=== PATIENT | male | born 1985 | race Caucasian/White ===

== ENCOUNTER 2019-08-12 13:43 | Observation (INO) | payer OTHER ==
--- NOTE | 2019-08-12 14:52 | ER Document Report ---
ED General - General Chief Complaint: Shortness Of Breath Stated Complaint: COUGH Time Seen by Provider: 08/12/19 14:25 Mode of Arrival: Ambulatory Information source: Patient Notes: 34-year-old healthy male recently discharged from the presents to the emergency department with complaints of fever, shortness of breath, productive cough. Patient gives history of symptoms started August 01 he became tired lightheaded. Reports he had a fever up to 102.2. He reports he started coughin g last week with white clear bubbly sputum. He did go to the [facility] on Monday. They treated him for an ear infection which he is taking antibiotics twice a day for 10 days. Told him he had a viral infection also prescribed him an inhaler Mucinex and cough drops. He reports he had a chest x-ray done and was told it was good. He reports his ear Is feeling a little bit better. He reports he is still short of breath he went for a walk today became extremely exhausted. He reports a little bit of diarrhea this morning but nothing big. Denies vomiting. Reports decreased appetite because when he eats he gets very short of breath. Denies recent trip. 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 Reports he was tested for the COVID as well as and they were both negative. Patient also reports he is a smoker. Has not smoked anything since August 01 due to his shortness of breath. - HPI Onset: Other - August 01 Onset/Duration: Persistent Associated symptoms: Productive cough, Fever, Nausea, Shortness of breath Exacerbated by: Walking Relieved by: Denies Similar symptoms previously: Yes Recently seen / treated by doctor: Yes - Related Data Allergies/Adverse Reactions: No Known Drug Allergies Allergy (Verified 08/12/19 14:14) Home Medications: INHALER, TYLENOL, IBUPROFEN Past Medical History - General Information source: Patient - Social History Smoking Status: Current Every Day Smoker Cigarette use (# per day): Yes Chew tobacco use (# tins/day): No Frequency of alcohol use: None Drug Abuse: None Occupation: Recent discharge from the , unemployed now Lives with: Family Family History: None Patient has suicidal ideation: No Patient has homicidal ideation: No Pulmonary Medical History: Reports: Hx Bronchitis, Hx Pneumonia Past Surgical History: Reports: Hx Orthopedic Surgery - RIGHT KNEE, JAW Review of Systems - Review of Systems Notes: Review HPI for review of systems., All other systems negative Physical Exam - Vital signs Vitals: Temp 98.8 F 08/12/19 14:05 - General General appearance: Alert In distress: None - HEENT Head: Normocephalic, Atraumatic Eyes: Normal Conjunctiva: Normal Extraocular movements intact: Yes Pupils: PERRL Ears: Normal External canal: Normal Tympanic membrane: Injected - Left Nasal: Normal Mucous membranes: Moist Pharynx: Normal Neck: Normal, Supple. No: Lymphadenopathy - Respiratory Respiratory status: No respiratory distress Chest status: Nontender Breath sounds: Decreased air movement, Rhonchi Chest palpation: Normal - Cardiovascular Rhythm: Regular Heart sounds: Normal auscultation Murmur: No - Abdominal Inspection: Normal Distension: No distension Bowel sounds: Normal Tenderness: Nontender Organomegaly: No organomegaly - Back Back: Normal, Nontender - Extremities General upper extremity: Normal color, Normal ROM General lower extremity: Normal color, Normal ROM - Neurological Neuro grossly intact: Yes Cognition: Normal Orientation: AAOx4 [place] Coma Scale Eye Opening: Spontaneous [place] Coma Scale Verbal: Oriented [place] Coma Scale Motor: Obeys Commands [place] Coma Scale Total: 15 Speech: Normal - Psychological Associated symptoms: Normal affect, Normal mood - Skin Skin Temperature: Warm Skin Moisture: Dry Skin Color: Normal Course - Re-evaluation Re-evalutation: 08/12/19 15:06 34-year-old relatively healthy male presents with shortness of breath fever cough. Recently tested for the COVID at [facility] which was negative. Patient presents here with increased shortness of breath reports low oxygen levels. O2 sat 90% on room air. 2 L nasal cannula placed. Labs ordered as well as CT of the chest. 08/12/19 18:00 I ambulated the patient around on room air. Patient O2 sat stayed between 92 to 93%. Patient became extremely short of breath heart rate bumped up to 115. CTA notes groundglass attenuation in both lungs predominantly in the right which is reported as a common feature of COVID-19, pneumonia. I consulted Ana Maria EDMOND, the hospital lead for admissions. She is going to talk to the ICU chest pain coordinator, dr castillo Chest X-Ray 08/12/19 00:00 IMPRESSION: HAZY AIRSPACE DISEASE IN THE LUNG BASES. Chest/Abdomen CTA 08/12/19 14:49 IMPRESSION: 1. Patchy areas of tree-in-bud and ground-glass attenuation in both lungs, predominantly in the right lower lobe. Commonly reported imaging features of COVID-19 pneumonia are present. Other processes such as influenza pneumonia and organizing pneumonia, as can be seen with drug toxicity and connective tissue disease, can cause a similar imaging pattern. 2. No pulmonary embolism. Evaluation is mildly limited due to respiratory motion and bolus timing. 3. Left renal cortical cyst. Laboratory 08/12/19 08/12/19 08/12/19 15:17 15:17 15:17 WBC 10.3 RBC 4.88 Hgb 15.3 Hct 43.1 MCV 88 MCH 31.4 MCHC 35.5 RDW 12.4 Plt Count 370 Lymph % (Auto) 12.4 L [place] % (Auto) 10.9 Eos % (Auto) 3.5 Baso % (Auto) 0.5 Absolute Neuts (auto) 7.5 Absolute Lymphs (auto) 1.3 Absolute Monos (auto) 1.1 Absolute Eos (auto) 0.4 Absolute Basos (auto) 0.0 Seg Neutrophils % 72.7 Sodium Potassium Chloride Carbon Dioxide Anion Gap BUN Creatinine Est GFR ( Amer) Est GFR (MDRD) Non-Af Glucose Calcium Total Bilirubin Direct Bilirubin Neonat Total Bilirubin Neonat Direct Bilirubin Neonat Indirect Bili AST ALT Alkaline Phosphatase Total Protein Albumin Urine Color Urine Appearance Urine pH Ur Specific Gate Urine Protein Urine Glucose (UA) Urine Ketones Urine Blood Urine Nitrite Urine Bilirubin Urine Urobilinogen Ur Leukocyte Esterase Urine WBC (Auto) Urine RBC (Auto) Squamous Epi Cells Auto Urine Mucus (Auto) Urine Ascorbic Acid Influenza A (Rapid) NEGATIVE Influenza B (Rapid) NEGATIVE Group A Strep Rapid NEGATIVE 08/12/19 08/12/19 15:17 15:32 WBC RBC Hgb Hct MCV MCH MCHC RDW Plt Count Lymph % (Auto) [place] % (Auto) Eos % (Auto) Baso % (Auto) Absolute Neuts (auto) Absolute Lymphs (auto) Absolute Monos (auto) Absolute Eos (auto) Absolute Basos (auto) Seg Neutrophils % Sodium 136.9 L Potassium 4.0 Chloride 98 Carbon Dioxide 30 Anion Gap 9 BUN 8 Creatinine 0.88 Est GFR ( Amer) > 60 Est GFR (MDRD) Non-Af > 60 Glucose 95 Calcium 9.7 Total Bilirubin 0.6 Direct Bilirubin 0.2 Neonat Total Bilirubin Not Reportable Neonat Direct Bilirubin Not Reportable Neonat Indirect Bili Not Reportable AST 43 ALT 60 H Alkaline Phosphatase 87 Total Protein 7.5 Albumin 4.3 Urine Color YELLOW Urine Appearance CLEAR Urine pH 6.[address] 1.019 Urine Protein NEGATIVE Urine Glucose (UA) NEGATIVE Urine Ketones TRACE H Urine Blood NEGATIVE Urine Nitrite NEGATIVE Urine Bilirubin NEGATIVE Urine Urobilinogen 4.0 H Ur Leukocyte Esterase NEGATIVE Urine WBC (Auto) 1 Urine RBC (Auto) 5 Squamous Epi Cells Auto <1 Urine Mucus (Auto) RARE Urine Ascorbic Acid 20 H Influenza A (Rapid) Influenza B (Rapid) Group A Strep Rapid 08/12/19 18:40 Dr. Urrutia in patient's room to assess 08/12/19 18:59 Patient to be admitted for hypoxia, cough, present under investigation for possible COVID-19. Dr. Urrutia reports he informed patient he will be admitted. - Vital Signs Vital signs: Temp Pulse Resp BP Pulse Ox 98.8 F 81 24 H 136/81 H 92 08/12/19 14:08 08/12/19 14:08 08/12/19 14:08 08/12/19 14:08 08/12/19 15:24 - Laboratory Result Diagrams: 08/12/19 15:17 08/12/19 15:17 Laboratory results interpreted by me: 08/12/19 08/12/19 08/12/19 15:17 15:17 15:32 Lymph % (Auto) 12.4 L Sodium 136.9 L ALT 60 H Urine Ketones TRACE H Urine Urobilinogen 4.0 H Urine Ascorbic Acid 20 H - Diagnostic Test Radiology reviewed: Image reviewed, Reports reviewed Discharge - Discharge Clinical Impression: Hypoxia, Cough, Person under investigation for COVID-19 Condition: Stable Disposition: ADMITTED INPATIENT Unit Admitted: Medical Floor
--- NOTE | 2019-08-12 15:08 | RADIOLOGY REPORT (SQ) ---
EXAM DESCRIPTION: CHEST SINGLE VIEW IMAGES COMPLETED DATE/TIME: 08/12/2019 2:59 pm REASON FOR STUDY: LOW O2 COMPARISON: None. EXAM PARAMETERS: NUMBER OF VIEWS: One view. TECHNIQUE: Single frontal radiographic view of the chest acquired. RADIATION DOSE: NA LIMITATIONS: None. FINDINGS: LUNGS AND PLEURA: Hazy airspace disease in the lung bases. MEDIASTINUM AND HILAR STRUCTURES: No masses. Contour normal. HEART AND VASCULAR STRUCTURES: Heart normal in size. Normal vasculature. BONES: No acute findings. HARDWARE: None in the chest. OTHER: No other significant finding. IMPRESSION: HAZY AIRSPACE DISEASE IN THE LUNG BASES. TECHNICAL DOCUMENTATION: JOB ID: [id number] 2010 [employer]- All Rights Reserved Reading location - IP/workstation name: [email or web address]
[2019-08-12 15:40] LABS: ABSOLUTE EOSINOPHILS # (AUTO) 0.4 10^3/uL (0.0-0.6); ABSOLUTE LYMPHOCYTES (AUTO) 1.3 10^3/uL (0.5-4.7); ABSOLUTE MONOCYTES (AUTO) 1.1 10^3/uL (0.1-1.4); ABSOLUTE NEUT (AUTO) 7.5 10^3/uL (1.7-8.2); BASOPHILS % (AUTO) 0.5 % (0-2); EOSINOPHILS % (AUTO) 3.5 % (0-6); HEMATOCRIT 43.1 % (37.9-51.0); HEMOGLOBIN 15.3 g/dL (13.5-17.0); LYMPHOCYTES % (AUTO) 12.4 % (13-45); MEAN CORPUSCULAR HEMOGLOBIN 31.4 pg (27.0-33.4); MEAN CORPUSCULAR HGB CONC 35.5 g/dL (32.0-36.0); MEAN CORPUSCULAR VOLUME 88 fl (80-97); MONOCYTES % (AUTO) 10.9 % (3-13); PLATELET COUNT 370 10^3/uL (150-450); RED BLOOD COUNT 4.88 10^6/uL (4.35-5.55); RED CELL DISTRIBUTION WIDTH 12.4 % (11.5-14.0); SEGMENTED NEUTROPHILS % (AUTO) 72.7 % (42-78); TOTAL CELLS COUNTED % (AUTO) 100 %; WHITE BLOOD COUNT 10.3 10^3/uL (4.0-10.5)
[2019-08-12 15:49] LABS: APPEARANCE,URINE CLEAR; BILIRUBIN,URINE NEGATIVE (NEGATIVE); COLOR,URINE YELLOW; GLUCOSE, URINE NEGATIVE (NEGATIVE); KETONES,URINE TRACE mg/dL (NEGATIVE); LEUKOCYTE ESTERASE,URINE NEGATIVE (NEGATIVE); NITRITE,URINE NEGATIVE (NEGATIVE); PROTEIN,URINE NEGATIVE (NEGATIVE); URINE SPECIFIC GRAVITY 1.019
[2019-08-12 15:55] LABS: ALBUMIN 4.3 g/dL (3.5-5.0); ALKALINE PHOSPHATASE 87 U/L (38-126); ANION GAP 9 (5-19); ASPARTATE AMINO TRANSFERASE 43 U/L (17-59); BILIRUBIN,DIRECT 0.2 mg/dL (0.0-0.4); BILIRUBIN,TOTAL 0.6 mg/dL (0.2-1.3); BLOOD UREA NITROGEN 8 mg/dL (7-20); CALCIUM 9.7 mg/dL (8.4-10.2); CARBON DIOXIDE 30 mmol/L (22-30); CHLORIDE 98 mmol/L (98-107); GLUCOSE 95 mg/dL (75-110); TOTAL PROTEIN 7.5 g/dL (6.3-8.2)
[2019-08-12 16:05] LABS: A TYPE INFLUENZA AG NEGATIVE (NEGATIVE); B INFLUENZA AG NEGATIVE (NEGATIVE)
--- NOTE | 2019-08-12 17:38 | RADIOLOGY REPORT (SQ) ---
EXAM DESCRIPTION: CTA CHEST IMAGES COMPLETED DATE/TIME: 08/12/2019 4:05 pm REASON FOR STUDY: COUGH, HYPOXIA . Low O2 saturation. COMPARISON: Chest radiograph same date. TECHNIQUE: CT scan of the chest performed using helical scanning technique with dynamic intravenous contrast injection. Images reviewed with lung, soft tissue and bone windows. Reconstructed coronal and sagittal MPR images reviewed. Additional 3 dimensional post-processing performed to develop Maximal Intensity Projection images (SC P). All images stored on PACS. All CT scanners at this facility use dose modulation, iterative reconstruction, and/or weight based d osing when appropriate to reduce radiation dose to as low as reasonably achievable (ALARA). [facility]: Dose Right [facility]: CareDose [facility]: Dose Right [facility]: Teradose 4D [facility]: [employer] CONTRAST TYPE AND DOSE: contrast/concentration: Isovue 350.00 mg/ml; Total Contrast Delivered: 70.0 ml; Total Saline Delivered: 36.8 ml Contrast bolus optimized for the pulmonary arteries. Not diagnostic for the aorta. RENAL FUNCTION: GFR > 60. RADIATION DOSE: CT Rad equipment meets quality standard of care and radiation dose reduction techniq ues were employed. CTDIvol: 13.2 - 18.9 mGy. DLP: 790 mGy-cm. . LIMITATIONS: None. FINDINGS: LUNGS AND PLEURA: The trachea has normal caliber and appearance. There are patchy areas o f tree-in-bud and nodular consolidation with areas of ground-glass attenuation in both lungs, most pr edominant in the right lower low and lingula. No pleural effusion or pneumothorax. AORTA AND GREAT VESSELS: No aneurysm. Contrast bolus not optimized for the aorta. Arch origin of th e left vertebral artery, a normal variant. HEART: No pericardial effusion. No significant coronary artery calcifications. PULMONARY ARTERIES: No emboli visualized in the main pulmonary arteries or the segmental branches. E valuation is somewhat limited due to bolus timing and respiratory motion. HILAR AND MEDIASTINAL STRUCTURES: No identified masses or abnormal nodes. HARDWARE: None in the chest. UPPER ABDOMEN: Left renal cortical cyst. THYROID AND OTHER SOFT TISSUES: No masses. No adenopathy. BONES: No acute or significant finding. 3D MIPS: Confirm above findings. OTHER: No other significant finding. IMPRESSION: 1. Patchy areas of tree-in-bud and ground-glass attenuation in both lungs, predominantly in the right lower lobe. Commonly reported imaging features of COVID-19 pneumonia are present. Other processes such as influenza pneumonia and organizing pneumonia, as can be seen with drug toxicity and connectiv e tissue disease, can cause a similar imaging pattern. 2. No pulmonary embolism. Evaluation is mildly limited due to respiratory motion and bolus timing. 3. Left renal cortical cyst. COMMENT: Quality ID # [id number]: Final reports with documentation of one or more dose reduction techniques (e.g., Automated exposure control, adjustment of the mA and/or kV according to patient size, use of iterative reconstruction technique) TECHNICAL DOCUMENTATION: JOB ID: [id number] 2010 [employer]- All Rights Reserved Reading location - IP/workstation name: [email or web address]
--- NOTE | 2019-08-12 19:14 | PDOC H&P ---
History of Present Illness History of Present Illness: AVRIL DEAN is a 34 year old male who was recently discharged from the [place] due to medical issues with his lower back who presents with upper respiratory symptoms. He said he has been sick for the past 10 or 11 days. His was initially sick 3 or 4 days ahead of him, she was treated with amoxicillin for an ear infection and she has since convalesced. He was also given some amoxicillin for the same reason, but he says his symptoms have not improved. He has also used an albuterol inhaler along with some Mucinex and some cdkt-lqc-bemohay cough medications but his symptoms have not improved. He said he is been intermittently febrile, at least he feels like he has been febrile. He has had a wet cough that has been productive of some whitish sputum. He used to smoke a pack a day for about 6 years but has not smoked since any of his symptoms began. He said his was tested for the flu and for the coronavirus, both were negative. He said he has also been tested for influenza and coronavirus, both were negative. He said he thinks it was the rapid test because they took the sample 1 day and called him the next day with the result. He denies vaping or smoking any other drugs. He denies any other drug use. [place] He said that everybody on basis pretty much keeping them to themselves. He said the only time he is left the house is been to go to [employer] or the grocery store. He lives with his , his 2 kids, and his zziidx-ry-luh. He said his rumzgu-ns-xti is from [facility] and said that when she was there a couple of months ago there was something going around and she got it but she got over it. She was asymptomatic whenever she came to their house. Neither the yglixn-wu-vww nor the 2 children have been sick since all of this began with the patient and his . In the ER he was hypoxic, a couple of times his pulse oximetry dropped into the mid 80s on room air. He was tachycardic and looked flushed. He had chest x-ray and chest CT findings consistent with a bibasilar pneumonitis. His CBC was unremarkable. He is afebrile here. He has a wet cough and was coughing frequently and he had some crackles on chest exam. Past Medical History Pulmonary Medical History: Reports: Bronchitis, Pneumonia Past Surgical History Past Surgical History: Reports: Orthopedic Surgery - RIGHT KNEE, JAW Social History Lives with: Family Smoking Status: Current Every Day Smoker Electronic Cigarette use?: No Family History Family History: None Parental Family History Reviewed: Yes - Hypertension, hyperlipidemia Children Family History Reviewed: Yes - Both healthy Sibling(s) Family History Reviewed.: Yes - Nothing known Medication/Allergy Allergies/Adverse Reactions: No Known Drug Allergies Allergy (Verified 08/12/19 14:14) Review of Systems All systems: reviewed and no additional remarkable complaints except as stated - All systems were reviewed and were negative except as noted in the HPI Physical Exam Vital Signs: Temp Pulse Resp BP Pulse Ox 98.8 F 81 24 H 136/81 H 92 08/12/19 14:08 08/12/19 14:08 08/12/19 14:08 08/12/19 14:08 08/12/19 15:24 Intake & Output 08/11/19 08/12/19 08/13/19 06:59 06:59 06:59 Weight 104.5 kg General appearance: PRESENT: cooperative, mild distress, well-developed, well-no urished Head exam: PRESENT: atraumatic, normocephalic Eye exam: PRESENT: EOMI, PERRLA. ABSENT: conjunctival injection, nystagmus, scleral icterus Ear exam: PRESENT: normal external ear exam Mouth exam: PRESENT: moist, neck supple Throat exam: ABSENT: post pharyngeal erythema Neck exam: PRESENT: full ROM. ABSENT: carotid bruit, JVD, lymphadenopathy, meningismus, tenderness, thyromegaly Respiratory exam: PRESENT: chest wall tenderness, crackles - Bibasilar, symmetrical, tachypnea, unlabored. ABSENT: accessory muscle use, prolonged expiratory phas, rhonchi, wheezes Cardiovascular exam: PRESENT: +S1, +S2, tachycardia. ABSENT: diastolic murmur, systolic murmur Pulses: PRESENT: normal carotid pulses Vascular exam: PRESENT: normal capillary refill GI/Abdominal exam: PRESENT: normal bowel sounds, soft. ABSENT: distended, guarding, rebound, tenderness Extremities exam: ABSENT: clubbing, pedal edema Musculoskeletal exam: PRESENT: normal inspection. ABSENT: deformity Neurological exam: PRESENT: alert, awake, oriented to person, oriented to place, oriented to time, oriented to situation, CN II-XII grossly intact. ABSENT: motor sensory deficit Psychiatric exam: PRESENT: appropriate affect, normal mood Skin exam: PRESENT: dry, warm, other - Flushed Results Laboratory Results: 08/12/19 15:17 08/12/19 15:17 08/12/19 08/12/19 08/12/19 15:17 15:17 15:32 WBC 10.3 RBC 4.88 Hgb 15.3 Hct 43.1 MCV 88 MCH 31.4 MCHC 35.5 RDW 12.4 Plt Count 370 Seg Neutrophils % 72.7 Sodium 136.9 L Potassium 4.0 Chloride 98 Carbon Dioxide 30 Anion Gap 9 BUN 8 Creatinine 0.88 Est GFR ( Amer) > 60 Glucose 95 Calcium 9.7 Total Bilirubin 0.6 AST 43 Alkaline Phosphatase 87 Total Protein 7.5 Albumin 4.3 Urine Color YELLOW Urine Appearance CLEAR Urine pH 6.0 Ur Specific [place] 1.019 Urine Protein NEGATIVE Urine Glucose (UA) NEGATIVE Urine Ketones TRACE H Urine Blood NEGATIVE Urine Nitrite NEGATIVE Ur Leukocyte Esterase NEGATIVE Urine WBC (Auto) 1 Urine RBC (Auto) 5 Impressions: Chest X-Ray 08/12/19 00:00 IMPRESSION: HAZY AIRSPACE DISEASE IN THE LUNG BASES. Chest/Abdomen CTA 08/12/19 14:49 IMPRESSION: 1. Patchy areas of tree-in-bud and ground-glass attenuation in both lungs, predominantly in the right lower lobe. Commonly reported imaging features of COVID-19 pneumonia are present. Other processes such as influenza pneumonia and organizing pneumonia, as can be seen with drug toxicity and connective tissue disease, can cause a similar imaging pattern. 2. No pulmonary embolism. Evaluation is mildly limited due to respiratory motion and bolus timing. 3. Left renal cortical cyst. Assessment and Plan - Diagnosis (1) Acute hypoxemic respiratory failure Is this a current diagnosis for this admission?: Yes Plan: Will monitor on pulse oximetry and use supplemental O2 as needed to maintain SPO2 greater than 90% (2) Suspected infectious disease Is this a current diagnosis for this admission?: Yes Plan: While testing him for viral infections, will empirically treat with Rocephin and azithromycin for potential community acquired pneumonia (3) Person under investigation for COVID-19 Is this a current diagnosis for this admission?: Yes Plan: Appropriate precautions taken. Initial rapid test was negative, but his presentation is somewhat suspicious and so we are going to send him out for PCR confirmation. (4) Current every day smoker Is this a current diagnosis for this admission?: Yes Plan: Counseled regarding the negative effects of cigarette smoking on his current and long-term health. He has not smoked since he first got sick with this about a week and a half ago, and I strongly recommended that he quit. - Time Time Spent with patient: 35 or more minutes - Inpatient Certification Based on my medical assessment, after consideration of the patient's comorbidities, presenting symptoms, or acuity I expect that the services needed warrant INPATIENT care.: Yes I certify that my determination is in accordance with my understanding of Medicare's requirements for reasonable and necessary INPATIENT services [42 CFR 412.3e].: Yes Medical Necessity: Failure to Improve With Outpatient Therapy, Need Close Monitoring Due to Risk of Patient Decompensation, Need For Continuous Telemetry Monitoring, Need for IV Antibiotics, Risk of Complication if Not Cared For in Hospital
[2019-08-12] MEDS ORDERED: CEFTRIAXONE 1 GM/D5W RTU 1 GM/50 ML RTUPB IV ONE (20:00)
[2019-08-12] MEDS ORDERED: AZITHROMYCIN 500 MG in DEXTROSE 5%-WATER 250 ML IV ONE (20:00)
[2019-08-12] MEDS: IPRATROPIUM/ALBUTEROL 0.5-2.5 MG/3 ML AMPUL NEB PRN (20:19)
[2019-08-12] MEDS ORDERED: AZITHROMYCIN INJ 500 MG VIAL IV ONE (21:06)
[2019-08-13 05:31] LABS: ABSOLUTE EOSINOPHILS # (AUTO) 0.3 10^3/uL (0.0-0.6); ABSOLUTE LYMPHOCYTES (AUTO) 1.4 10^3/uL (0.5-4.7); BASOPHILS % (AUTO) 0.4 % (0-2); EOSINOPHILS % (AUTO) 3.1 % (0-6); HEMATOCRIT 39.1 % (37.9-51.0); HEMOGLOBIN 14.1 g/dL (13.5-17.0); LYMPHOCYTES % (AUTO) 14.2 % (13-45); MEAN CORPUSCULAR HEMOGLOBIN 31.4 pg (27.0-33.4); MEAN CORPUSCULAR HGB CONC 36.1 g/dL (32.0-36.0); MEAN CORPUSCULAR VOLUME 87 fl (80-97); MONOCYTES % (AUTO) 10.4 % (3-13); PLATELET COUNT 331 10^3/uL (150-450); RED BLOOD COUNT 4.49 10^6/uL (4.35-5.55); RED CELL DISTRIBUTION WIDTH 12.3 % (11.5-14.0); SEGMENTED NEUTROPHILS % (AUTO) 71.9 % (42-78); TOTAL CELLS COUNTED % (AUTO) 100 %; WHITE BLOOD COUNT 9.7 10^3/uL (4.0-10.5)
[2019-08-13 05:52] LABS: ANION GAP 11 (5-19); BLOOD UREA NITROGEN 7 mg/dL (7-20); CALCIUM 9.2 mg/dL (8.4-10.2); CARBON DIOXIDE 26 mmol/L (22-30); CHLORIDE 99 mmol/L (98-107); GLUCOSE 101 mg/dL (75-110)
[2019-08-13] MEDS ORDERED: ACETAMINOPHEN 325 MG TABLET PO PRN (12:08)
[2019-08-13] MEDS ORDERED: ACETAMINOPHEN 325 MG TABLET ONE (12:17)
[2019-08-13] MEDS: IPRATROPIUM/ALBUTEROL 0.5-2.5 MG/3 ML AMPUL NEB PRN (13:57)
[2019-08-13] MEDS ORDERED: CEFTRIAXONE 1 GM/D5W RTU 1 GM/50 ML RTUPB IV SCH (18:00)
[2019-08-13] MEDS ORDERED: AZITHROMYCIN 500 MG in DEXTROSE 5%-WATER 250 ML IV SCH (18:00)
--- NOTE | 2019-08-13 18:35 | PDOC PROGRESS REPORT ---
Subjective Progress Note for:: 08/13/19 Subjective:: No adverse events overnight. No new complaints. He said he feels a little better but he still has a cough. He still requiring some oxygen per nasal cannula. His appetite has not been great. He confirmed that his was sick, and then shortly after contact with her he got sick. His Monospot was positive. He said that he was also sick a few months ago after visiting some friends out of state. He does not know if what they had was mono. His has not been tested for mono. Reason For Visit: HYPERKALEMIA, HYPOMAGNESEMIA, ELEVATED LIPASE Physical Exam Vital Signs: Temp Pulse Resp BP Pulse Ox 98.4 F 86 20 148/80 H 92 08/13/19 15:04 08/13/19 15:04 08/13/19 15:04 08/13/19 15:04 08/13/19 15:04 Intake & Output 08/12/19 08/13/19 08/14/19 06:59 06:59 06:59 Intake Total 300 1282 Balance 300 1282 Weight 101.5 kg General appearance: PRESENT: cooperative, no apparent distress, well-developed, well-nourished Respiratory exam: PRESENT: crackles -faint bibasilar, symmetrical, tachypnea, unlabored. ABSENT: accessory muscle use, prolonged expiratory phase, rhonchi, wheezes Cardiovascular exam: PRESENT: +S1, +S2, RRR. ABSENT: diastolic murmur, systolic murmur Pulses: PRESENT: normal carotid pulses Vascular exam: PRESENT: normal capillary refill GI/Abdominal exam: PRESENT: normal bowel sounds, soft. ABSENT: distended, guarding, rebound, tenderness Extremities exam: ABSENT: clubbing, pedal edema Musculoskeletal exam: PRESENT: normal inspection. ABSENT: deformity Neurological exam: PRESENT: alert, awake, oriented to person, oriented to place, oriented to time, oriented to situation Psychiatric exam: PRESENT: appropriate affect, normal mood Skin exam: PRESENT: dry, warm Results Laboratory Results: 08/13/19 04:40 08/13/19 04:40 08/13/19 08/13/19 04:40 04:40 WBC 9.7 RBC 4.49 Hgb 14.1 Hct 39.1 MCV 87 MCH 31.4 MCHC 36.1 H RDW 12.3 Plt Count 331 Seg Neutrophils % 71.9 Sodium 136.3 L Potassium 4.0 Chloride 99 Carbon Dioxide 26 Anion Gap 11 BUN 7 Creatinine 0.73 Est GFR ( Amer) > 60 Glucose 101 Calcium 9.2 Impressions: Chest X-Ray 08/12/19 00:00 IMPRESSION: HAZY AIRSPACE DISEASE IN THE LUNG BASES. Chest/Abdomen CTA 08/12/19 14:49 IMPRESSION: 1. Patchy areas of tree-in-bud and ground-glass attenuation in both lungs, predominantly in the right lower lobe. Commonly reported imaging features of COVID-19 pneumonia are present. Other processes such as influenza pneumonia and organizing pneumonia, as can be seen with drug toxicity and connective tissue disease, can cause a similar imaging pattern. 2. No pulmonary embolism. Evaluation is mildly limited due to respiratory motion and bolus timing. 3. Left renal cortical cyst. Assessment and Plan - Diagnosis (1) Acute hypoxemic respiratory failure Is this a current diagnosis for this admission?: Yes Plan: Will monitor on pulse oximetry and use supplemental O2 as needed to maintain SPO2 greater than 90% (2) Suspected infectious disease Is this a current diagnosis for this admission?: Yes Plan: While testing him for viral infections, will empirically treat with Rocephin and azithromycin for potential community acquired pneumonia. Monospot was positive, but he does seem to be doing a little bit better after a day of antibiotics. (3) Person under investigation for COVID-19 Is this a current diagnosis for this admission?: Yes Plan: COVID-19 testing was negative (4) Current every day smoker Is this a current diagnosis for this admission?: Yes Plan: Counseled regarding the negative effects of cigarette smoking on his current and long-term health. He has not smoked since he first got sick with this about a week and a half ago, and I strongly recommended that he quit. - Time Time Spent with patient: 15-24 minutes
[2019-08-13] MEDS ORDERED: ONDANSETRON 4 MG TAB.RAPDIS PO PRN (19:49)
[2019-08-14 05:06] LABS: ABSOLUTE BASOPHILS # (AUTO) 0.1 10^3/uL (0.0-0.2); ABSOLUTE EOSINOPHILS # (AUTO) 0.4 10^3/uL (0.0-0.6); ABSOLUTE LYMPHOCYTES (AUTO) 1.7 10^3/uL (0.5-4.7); ABSOLUTE MONOCYTES (AUTO) 0.9 10^3/uL (0.1-1.4); ABSOLUTE NEUT (AUTO) 4.7 10^3/uL (1.7-8.2); BASOPHILS % (AUTO) 0.7 % (0-2); EOSINOPHILS % (AUTO) 5.6 % (0-6); HEMATOCRIT 39.8 % (37.9-51.0); HEMOGLOBIN 13.9 g/dL (13.5-17.0); LYMPHOCYTES % (AUTO) 22.4 % (13-45); MEAN CORPUSCULAR VOLUME 89 fl (80-97); MONOCYTES % (AUTO) 11.4 % (3-13); PLATELET COUNT 345 10^3/uL (150-450); RED BLOOD COUNT 4.49 10^6/uL (4.35-5.55); RED CELL DISTRIBUTION WIDTH 12.2 % (11.5-14.0); SEGMENTED NEUTROPHILS % (AUTO) 59.9 % (42-78); TOTAL CELLS COUNTED % (AUTO) 100 %; WHITE BLOOD COUNT 7.8 10^3/uL (4.0-10.5)
[2019-08-14 05:35] LABS: ANION GAP 10 (5-19); BLOOD UREA NITROGEN 10 mg/dL (7-20); CALCIUM 9.1 mg/dL (8.4-10.2); CARBON DIOXIDE 27 mmol/L (22-30); CHLORIDE 101 mmol/L (98-107); GLUCOSE 97 mg/dL (75-110); POTASSIUM 4.1 mmol/L (3.6-5.0)
--- NOTE | 2019-08-14 15:31 | PDOC DISCHARGE SUMMARY ---
Impression - Admit/DC Date/PCP Admission Date/Primary Care Provider: 08/12/19 19:11 Discharge Date: 08/14/19 - Discharge Diagnosis (1) Acute hypoxemic respiratory failure Is this a current diagnosis for this admission?: Yes (2) Suspected infectious disease Is this a current diagnosis for this admission?: Yes (3) Person under investigation for COVID-19 Is this a current diagnosis for this admission?: Yes (4) Current every day smoker Is this a current diagnosis for this admission?: Yes - Additional Information Resuscitation Status: Full Code Discharge Diet: Regular Discharge Activity: Activity As Tolerated, Balance Activity w/Rest, Energy Conservation Prescriptions: Levofloxacin [Levaquin 750 mg Tablet] 750 mg PO DAILY #5 tablet Home Medications: Acetaminophen [Acetaminophen Extra Strength] 2 mg PO DAILYP PRN 08/13/19 Albuterol Sulfate [Albuterol Sulfate Hfa] 2 puff IH Q4HP PRN 08/13/19 Guaifenesin [Mucus ER] 1,200 mg PO BID 08/13/19 Ibuprofen 400 mg PO DAILYP PRN 08/13/19 Levofloxacin [Levaquin 750 mg Tablet] 750 mg PO DAILY #5 tablet 08/14/19 History of Present Illiness History of Present Illness: AVRIL DEAN is a 34 year old male who was recently discharged from the [facility] due to medical issues with his lower back who presents with upper respiratory symptoms. He said he has been sick for the past 10 or 11 days. His was initially sick 3 or 4 days ahead of him, she was treated with amoxicillin for an ear infection and she has since convalesced. He was also given some amoxicillin for the same reason, but he says his symptoms have not improved. He has also used an albuterol inhaler along with some Mucinex and some [id number] cough medications but his symptoms have not improved. He said he is been intermittently febrile, at least he feels like he has been febrile. He has had a wet cough that has been productive of some whitish sputum. He used to smoke a pack a day for about 6 years but has not smoked since any of his symptoms began. He said his was tested for the flu and for the coronavirus, both were negative. He said he has also been tested for influenza and coronavirus, both were negative. He said he thinks it was the rapid test because they took the sample 1 day and called him the next day with the result. He denies vaping or smoking any other drugs. He denies any other drug use. [place] He said that everybody on basis pretty much keeping them to themselves. He said the only time he is left the house is been to go to [employer] or the grocery store. He lives with his , his 2 kids, and his [id number]. He said his [id number] is from [facility] and said that when she was there a couple of months ago there was something going around and she got it but she got over it. She was asymptomatic whenever she came to their house. Neither the [id number] nor the 2 children have been sick since all of this began with the patient and his . In the ER he was hypoxic, a couple of times his pulse oximetry dropped into the mid 80s on room air. He was tachycardic and looked flushed. He had chest x-ray and chest CT findings consistent with a bibasilar pneumonitis. His CBC was unremarkable. He is afebrile here. He has a wet cough and was coughing frequently and he had some crackles on chest exam. Hospital Course Hospital Course: He tested positive for mononucleosis. He said that he has been sick in the past year for upper respiratory infection that dragged on for a few weeks, so it still possible that his acute illness is not mononucleosis and he still just testing positive because a heterophile antibody can be positive for up to a year after the illness. He was empirically treated with some antibiotics. He initially needed oxygen, but is now 94% on room air. He is feeling better. I am going to send him home with a few days of some Levaquin. I have instructed him to return to the hospital if he has a fever or he has trouble breathing. He verbalizes understanding. I again recommended that he continue to quit smoking. His labs and examination were reassuring and he was discharged in stable condition. Physical Exam Vital Signs: Temp Pulse Resp BP Pulse Ox 97.9 F 76 16 130/78 H 96 08/14/19 11:30 08/14/19 14:32 08/14/19 14:32 08/14/19 11:30 08/14/19 14:32 Intake & Output 08/13/19 08/14/19 08/15/19 06:59 06:59 06:59 Intake Total 300 1862 120 Output Total 220 Balance 300 1642 120 Weight 101.5 kg 101.5 kg General appearance: PRESENT: cooperative, no apparent distress, well-developed, well-nourished Respiratory exam: PRESENT: crackles -faint bibasilar, symmetrical, tachypnea, unlabored. ABSENT: accessory muscle use, prolonged expiratory phase, rhonchi, wheezes Cardiovascular exam: PRESENT: +S1, +S2, RRR. ABSENT: diastolic murmur, systolic murmur Pulses: PRESENT: normal carotid pulses Vascular exam: PRESENT: normal capillary refill GI/Abdominal exam: PRESENT: normal bowel sounds, soft. ABSENT: distended, guarding, rebound, tenderness Extremities exam: ABSENT: clubbing, pedal edema Musculoskeletal exam: PRESENT: normal inspection. ABSENT: deformity Neurological exam: PRESENT: alert, awake, oriented to person, oriented to place, oriented to time, oriented to situation Psychiatric exam: PRESENT: appropriate affect, normal mood Skin exam: PRESENT: dry, warm Results Laboratory Results: WBC 7.8 10^3/uL (4.0-10.5) 08/14/19 04:41 RBC 4.49 10^6/uL (4.35-5.55) 08/14/19 04:41 Hgb 13.9 g/dL (13.5-17.0) 08/14/19 04:41 Hct 39.8 % (37.9-51.0) 08/14/19 04:41 MCV 89 fl (80-97) 08/14/19 04:41 MCH 31.0 pg (27.0-33.4) 08/14/19 04:41 MCHC 35.0 g/dL (32.0-36.0) 08/14/19 04:41 RDW 12.2 % (11.5-14.0) 08/14/19 04:41 Plt Count 345 10^3/uL (150-450) 08/14/19 04:41 Lymph % (Auto) 22.4 % (13-45) 08/14/19 04:41 [place] % (Auto) 11.4 % (3-13) 08/14/19 04:41 Eos % (Auto) 5.6 % (0-6) 08/14/19 04:41 Baso % (Auto) 0.7 % (0-2) 08/14/19 04:41 Absolute Neuts (auto) 4.7 10^3/uL (1.7-8.2) 08/14/19 04:41 Absolute Lymphs (auto) 1.7 10^3/uL (0.5-4.7) 08/14/19 04:41 Absolute Monos (auto) 0.9 10^3/uL (0.1-1.4) 08/14/19 04:41 Absolute Eos (auto) 0.4 10^3/uL (0.0-0.6) 08/14/19 04:41 Absolute Basos (auto) 0.1 10^3/uL (0.0-0.2) 08/14/19 04:41 Seg Neutrophils % 59.9 % (42-78) 08/14/19 04:41 Sodium 138.1 mmol/L (137-145) 08/14/19 04:41 Potassium 4.1 mmol/L (3.6-5.0) 08/14/19 04:41 Chloride 101 mmol/L (98-107) 08/14/19 04:41 Carbon Dioxide 27 mmol/L (22-30) 08/14/19 04:41 Anion Gap 10 (5-19) 08/14/19 04:41 BUN 10 mg/dL (7-20) 08/14/19 04:41 Creatinine 0.72 mg/dL (0.52-1.25) 08/14/19 04:41 Est GFR ( Amer) > 60 (>60) 08/14/19 04:41 Est GFR (MDRD) Non-Af > 60 (>60) 08/14/19 04:41 Glucose 97 mg/dL (75-110) 08/14/19 04:41 Calcium 9.1 mg/dL (8.4-10.2) 08/14/19 04:41 Total Bilirubin 0.6 mg/dL (0.2-1.3) 08/12/19 15:17 Direct Bilirubin 0.2 mg/dL (0.0-0.4) 08/12/19 15:17 Neonat Total Bilirubin Not Reportable 08/12/19 15:17 Neonat Direct Bilirubin Not Reportable 08/12/19 15:17 Neonat Indirect Bili Not Reportable 08/12/19 15:17 AST 43 U/L (17-59) 08/12/19 15:17 ALT 60 U/L (<50) H 08/12/19 15:17 Alkaline Phosphatase 87 U/L (38-126) 08/12/19 15:17 Total Protein 7.5 g/dL (6.3-8.2) 08/12/19 15:17 Albumin 4.3 g/dL (3.5-5.0) 08/12/19 15:17 Urine Color YELLOW 08/12/19 15:32 Urine Appearance CLEAR 08/12/19 15:32 Urine pH 6.0 (5.0-9.0) 08/12/19 15:32 Ur Specific [place] 1.019 08/12/19 15:32 Urine Protein NEGATIVE mg/dL (NEGATIVE) 08/12/19 15:32 Urine Glucose (UA) NEGATIVE mg/dL (NEGATIVE) 08/12/19 15:32 Urine Ketones TRACE mg/dL (NEGATIVE) H 08/12/19 15:32 Urine Blood NEGATIVE (NEGATIVE) 08/12/19 15:32 Urine Nitrite NEGATIVE (NEGATIVE) 08/12/19 15:32 Urine Bilirubin NEGATIVE (NEGATIVE) 08/12/19 15:32 Urine Urobilinogen 4.0 mg/dL (<2.0) H 08/12/19 15:32 Ur Leukocyte Esterase NEGATIVE (NEGATIVE) 08/12/19 15:32 Urine WBC (Auto) 1 /HPF 08/12/19 15:32 Urine RBC (Auto) 5 /HPF 08/12/19 15:32 Squamous Epi Cells Auto <1 /HPF 08/12/19 15:32 Urine Mucus (Auto) RARE /LPF 08/12/19 15:32 Urine Ascorbic Acid 20 (NEGATIVE) H 08/12/19 15:32 Monotest POSITIVE (NEGATIVE) H 08/12/19 15:17 Influenza A (Rapid) NEGATIVE (NEGATIVE) 08/12/19 15:17 Influenza B (Rapid) NEGATIVE (NEGATIVE) 08/12/19 15:17 SARS-CoV-2 (PCR) NEGATIVE (NEGATIVE) 08/12/19 20:04 Group A Strep Rapid NEGATIVE (NEGATIVE) 08/12/19 15:17 Impressions: Chest X-Ray 08/12/19 00:00 IMPRESSION: HAZY AIRSPACE DISEASE IN THE LUNG BASES. Chest/Abdomen CTA 08/12/19 14:49 IMPRESSION: 1. Patchy areas of tree-in-bud and ground-glass attenuation in both lungs, predominantly in the right lower lobe. Commonly reported imaging features of COVID-19 pneumonia are present. Other processes such as influenza pneumonia and organizing pneumonia, as can be seen with drug toxicity and connective tissue disease, can cause a similar imaging pattern. 2. No pulmonary embolism. Evaluation is mildly limited due to respiratory motion and bolus timing. 3. Left renal cortical cyst. Plan Time Spent: Greater than 30 Minutes Stroke Is this a Stroke Patient?: No Acute Heart Failure - Is this a Heart Failure Patient?: No
[2019-08-14 16:33] VITALS: BP 119/64
[2019-08-15 05:37] LABS: EBV EARLY AG AB DIFFUSE Negative (Neg:<1:20)
[2019-08-15 07:07] LABS: EPSTEIN BARR VCA IGM AB <36.0 U/mL (0.0-35.9)
== END 2019-08-14 16:29 | disposition home or self-care (01) ==
LOC: ER 13:43 → INTOOBSV 19:11 → EH 19:11 → 4N 08-13 00:20
PROVIDERS: ADMIT Family Medicine; ATTEND Family Medicine
DX: J96.01 Acute respiratory failure with hypoxia (principal); F17.210 Nicotine dependence, cigarettes, uncomplicated; B27.90 Infectious mononucleosis, unspecified without complication; R00.0 Tachycardia, unspecified; R05 Cough; R19.7 Diarrhea, unspecified; R63.0 Anorexia; R11.0 Nausea; Z79.899 Other long term (current) drug therapy; Z03.818 Encounter for observation for suspected exposure to other biological agents ruled out
CPT/HCPCS: 99285; 36415 ×3; 87040; 87070 ×3; 87205 ×2; 86665 ×2; 86664; 87880; 85025 ×3; 87635; 86308; 80048 ×2; 80053; 81001; 86663 ×2; 87804; 71045; 71275; 94640; S0119; J7060 ×2; J0456 ×2; J0696 ×2; J7620 ×2; G0378